=== PATIENT | female | born 1980 | race Caucasian/White ===

== ENCOUNTER 2024-09-20 19:39 | Emergency (ER) | payer MEDICAID ==
[~2024-09-20] VITALS: Ht 162.6 cm; Wt 52.0 kg
[2024-09-20 19:44] VITALS: TEMP 98.4; O2SAT 100
[2024-09-21 01:57] LABS: CLARITY URINE CLEAR (CLEAR); COLOR URINE DARK YELLOW (YELLOW); GLUCOSE URINE TRACE (NEGATIVE); KETONES URINE NEGATIVE (NEGATIVE); LEUKOCYTE ESTERASE URINE NEGATIVE (NEGATIVE); NITRITE URINE NEGATIVE (NEGATIVE); OCCULT BLOOD URINE NEGATIVE (NEGATIVE); PH URINE 5.5 (4.5-8.0); PROTEIN URINE 1+ (NEGATIVE); SPECIFIC GRAVITY URINE 1.033 (1.005-1.030); UROBILINOGEN URINE 0.2 E.U./dL (0.2-1.0)
[2024-09-21 02:01] LABS: BASOPHILS % 0.2 % (0.0-2.0); EOSINOPHILS % 2.7 % (0.0-5.0); HEMATOCRIT. 39.2 % (36.0-48.0); HEMOGLOBIN. 13.2 g/dL (12.0-16.0); LYMPHOCYTES % 32.4 % (20.0-50.0); MEAN CORPUSCULAR HEMOGLOBIN 28.5 pg (28.0-32.0); MEAN CORPUSCULAR HGB CONC 33.7 g/dL (31.0-37.0); MEAN CORPUSCULAR VOLUME 84.4 fL (81.0-99.0); MONOCYTES % 9.5 % (2.0-8.0); NEUTROPHILS % 55.2 % (40.0-76.0); PLATELET 221 x1000/uL (130-400); RED BLOOD CELL COUNT 4.65 mill/uL (4.2-5.4); RED CELL DISTRIBUTION WIDTH 14.2 % (11.6-14.6)
[2024-09-21 02:02] LABS: CHLORIDE 104 mEq/L (98-107); POTASSIUM 5.8 mEq/L (3.5-5.1); SODIUM 138 mEq/L (136-145)
[2024-09-21 02:03] LABS: CALCIUM 9.1 mg/dL (8.7-10.4); CARBON DIOXIDE 28 mEq/L (21-32)
[2024-09-21 02:08] LABS: CREATININE 0.8 mg/dL (0.6-1.0); GLUCOSE 168 mg/dL (70-105); UREA NITROGEN BLOOD 13 mg/dL (9-23)
[2024-09-21 03:43] LABS: HCG SCREEN NEGATIVE
[2024-09-21 04:22] LABS: SQUAMOUS EPITHELIAL CELL URINE 1+ /lpf (RARE/1+)
[2024-09-21 04:23] LABS: FINE GRANULAR CASTS URINE 0-5 /lpf
[2024-09-21 04:24] LABS: BACTERIA URINE NONE SEEN; CALCIUM OXALATE CRYSTALS URINE 1+ /lpf; RBC URINE 0-2 /hpf (0-2)
[2024-09-21 05:13] LABS: CHLORIDE 106 mEq/L (98-107); SODIUM 143 mEq/L (136-145)
[2024-09-21 05:14] LABS: CARBON DIOXIDE 29 mEq/L (21-32)
[2024-09-21 05:15] LABS: CALCIUM 9.4 mg/dL (8.7-10.4)
[2024-09-21 05:19] LABS: CREATININE 0.8 mg/dL (0.6-1.0); GLUCOSE 107 mg/dL (70-105); UREA NITROGEN BLOOD 16 mg/dL (9-23)
[2024-09-21 05:51] LABS: POTASSIUM 3.4 mEq/L (3.5-5.1)
[2024-09-21] MEDS ORDERED: NAPR-681 PO (06:08)
[2024-09-21] MEDS ORDERED: AMOX-494 MT (06:08)
[2024-09-21] MEDS ORDERED: TRAM50TA3 MT (06:08)
[2024-09-21 06:35] VITALS: BP 100/68; PULSE 91; RESP 18; O2SAT 100
[2024-09-21] MEDS ORDERED: IOHEXOL-300 100 ML BOTTLE ONE (06:43)
== END 2024-09-21 06:39 | disposition home or self-care (01) ==
LOC: ER 19:39
DX: S02.5XXA Fracture of tooth (traumatic), initial encounter for closed fracture (principal); S00.83XA Contusion of other part of head, initial encounter; S00.81XA Abrasion of other part of head, initial encounter; M25.562 Pain in left knee; M25.561 Pain in right knee; R10.9 Unspecified abdominal pain; R07.81 Pleurodynia; E11.9 Type 2 diabetes mellitus without complications; F41.9 Anxiety disorder, unspecified; F32.A Depression, unspecified; Z88.2 Allergy status to sulfonamides; Z88.1 Allergy status to other antibiotic agents; V89.2XXA Person injured in unspecified motor-vehicle accident, traffic, initial encounter; Y93.89 Activity, other specified; Y92.89 Other specified places as the place of occurrence of the external cause; Y99.8 Other external cause status
CPT/HCPCS: 99285; 36415 ×2; 73562; 73610; 70450; 80048; 81003; 84703; 85025; 70486; 71260; 72125; 74177; Q9967